=== PATIENT | male | born 1980 | race African-American/Black ===

== ENCOUNTER 2016-10-06 10:45 | Emergency (ER) | payer OTHER ==
[2016-10-06] MEDS ORDERED: Ondansetron INJ* 2 MG/ML VIAL IV ONE (11:25)
[2016-10-06] MEDS ORDERED: Ketorolac INJ* 30 MG/ML 1 ML VIAL IV ONE (11:25)
[2016-10-06] MEDS ORDERED: Acetaminophen TAB* 325 MG PO ONE (11:25)
[2016-10-06] MEDS: NS 0.9% 1000 ML* 3,000 ML IV ONE ×2 (11:56→12:05)
[2016-10-06 12:20] LABS: Hematocrit 41 % (42-52); Mean Corpuscular HGB Conc 34 g/dl (31-36); Mean Corpuscular Hemoglobin 28 pg (27-31); Mean Corpuscular Volume 83 fL (80-94); Mean Platelet Volume 10 um3 (7.4-10.4); Red Blood Count 4.98 10^6/ul (4.0-5.4); Red Cell Distribution Width 14 % (10.5-15); White Blood Count 4.2 10^3/ul (3.5-10.8)
[2016-10-06 12:38] LABS: Albumin 3.7 g/dL (3.2-5.2); BUN/Creatinine Ratio 9.8 (8-20); C Reactive Protein 10.11 mg/L (< 5.00); Calcium 8.6 mg/dL (8.6-10.3); EGFR African American 120.4 (>60); EGFR Non-African American 93.6 (>60); Globulin 2.9 g/dL (2-4); Total Bilirubin 0.9 mg/dL (0.2-1.0); Total Protein 6.6 g/dL (6.4-8.9)
[2016-10-06 12:42] LABS: Potassium 3.9 mmol/L (3.5-5.0)
[2016-10-06 12:45] LABS: Urine Bacteria Absent (Absent); Urine Bilirubin Negative (Negative); Urine Glucose Negative (Negative); Urine Nitrite Negative (Negative)
[2016-10-06 12:52] LABS: TSH (Thyroid Stimulating Horm) 0.36 mcIU/mL (0.34-5.60)
[2016-10-06] MEDS ORDERED: Oseltamivir CAP* 75 MG PO ONE ×2 (14:00→14:02)
[2016-10-06] MEDS ORDERED: Ondansetron ODT TAB* 4 MG SL PRN (14:02)
--- NOTE | 2016-10-06 14:05 | ED ---
Jimena Lozada Alok, scribed for Humberto Araiza MD on 10/06/16 at 1131 . Influenza-Like Illness - HPI Summary HPI Summary: 35 y/o male presents to the ED with influenza-like symptoms including vomiting for the last two days, TEJADA, myalgia, dizziness, nausea, subjective fever, chills , and sore throat. Pt denies any diarrhea, dysuria, rashes, cough, chest congestion, rhinorrhea, or abd pain. Pt states NKDA. No other medical findings at this time. - History of Current Complaint Chief Complaint: EDNauseaVomitDiarrh Time Seen by Provider: 10/06/16 11:14 Hx Obtained From: Patient Onset/Duration: Gradual Onset, Lasting Days, Still Present Severity: Moderate Associated Signs & Symptoms: Fever, Myalgia, Sore Throat, Headache, Vomiting - Allergy/Home Medications Allergies/Adverse Reactions: Allergies Allergy/AdvReac Type Severity Reaction Status Date / Time No Known Allergies Allergy Verified 10/06/16 12:13 PMH/Surg Hx/FS Hx/Imm Hx Infectious Disease History: No Infectious Disease History: Denies: Traveled Outside the [place] in Last 30 Days - Social History Occupation: Unemployed Alcohol Use: None Substance Use Type: Reports: None Smoking Status (MU): Light Every Day Tobacco Smoker Review of Systems Positive: Fever, Chills Positive: Sore Throat. Negative: Nasal Discharge Negative: Cough Positive: Vomiting, Nausea. Negative: Abdominal Pain, Diarrhea Negative: dysuria Positive: Myalgia Negative: Rash All Other Systems Reviewed And Are Negative: Yes Physical Exam Triage Information Reviewed: Yes Vital Signs On Initial Exam: Initial Vitals Temp Pulse Resp BP Pulse Ox 98.8 F 54 16 105/50 98 10/06/16 10:52 10/06/16 10:52 10/06/16 10:52 10/06/16 10:52 10/06/16 10:52 Vital Signs Reviewed: Yes Appearance: Positive: No Pain Distress, Ill-Appearing - Mild Skin: Positive: Warm, Skin Color Reflects Adequate Perfusion, Dry Head/Face: Positive: Normal Head/Face Inspection Eyes: Positive: Normal ENT: Positive: Other - Dry Oral Mucosis Neck: Positive: Supple, Nontender Respiratory/Lung Sounds: Positive: Clear to Auscultation, Breath Sounds Present Cardiovascular: Positive: RRR Abdomen Description: Positive: Nontender, Soft Bowel Sounds: Positive: Present Musculoskeletal: Positive: Normal, Strength/ROM Intact Neurological: Positive: Normal, Sensory/Motor Intact, Alert, Oriented to Person Place, Time Psychiatric: Positive: Normal, Affect/Mood Appropriate - Ean Coma Scale Coma Scale Total: 15 Diagnostics - Vital Signs Vital Signs Temp Pulse Resp BP Pulse Ox 10/06/16 10:52 98.8 F 54 16 105/50 98 - Laboratory Lab Results: Lab Results 10/06/16 10/06/16 10/06/16 Range/Units 11:53 11:53 11:53 WBC 4.2 (3.5-10.8) 10^3/ul RBC 4.98 (4.0-5.4) 10^6/ul Hgb 14.0 (14.0-18.0) g/dl Hct 41 L (42-52) % MCV 83 (80-94) fL MCH 28 (27-31) pg MCHC 34 (31-36) g/dl RDW 14 (10.5-15) % Plt Count 122 L (150-450) 10^3/ul MPV 10 (7.4-10.4) um3 Neut % (Auto) 62.7 (38-83) % Lymph % (Auto) 20.8 L (25-47) % Mcleod % (Auto) 15.8 H (1-9) % Eos % (Auto) 0.2 (0-6) % Baso % (Auto) 0.5 (0-2) % Absolute Neuts (auto) 2.6 (1.5-7.7) 10^3/ul Absolute Lymphs (auto) 0.9 L (1.0-4.8) 10^3/ul Absolute Monos (auto) 0.7 (0-0.8) 10^3/ul Absolute Eos (auto) 0 (0-0.6) 10^3/ul Absolute Basos (auto) 0 (0-0.2) 10^3/ul Absolute Nucleated RBC 0.01 10^3/ul Nucleated RBC % 0.2 INR (Anticoag Therapy) 1.14 H (0.89-1.11) APTT 29.9 (26.0-36.3) seconds Sodium 133 (133-145) mmol/L Potassium 3.9 (3.5-5.0) mmol/L Chloride 105 (101-111) mmol/L Carbon Dioxide 24 (22-32) mmol/L Anion Gap 4 (2-11) mmol/L BUN 9 (6-24) mg/dL Creatinine 0.92 (0.67-1.17) mg/dL Est GFR ( Amer) 120.4 (>60) Est GFR (Non-Af Amer) 93.6 (>60) BUN/Creatinine Ratio 9.8 (8-20) Glucose 98 (70-100) mg/dL Lactic Acid (0.5-2.0) mmol/L Calcium 8.6 (8.6-10.3) mg/dL Total Bilirubin 0.90 (0.2-1.0) mg/dL AST 34 (13-39) U/L ALT 36 (7-52) U/L Alkaline Phosphatase 31 L (34-104) U/L C-Reactive Protein 10.11 H (< 5.00) mg/L Total Protein 6.6 (6.4-8.9) g/dL Albumin 3.7 (3.2-5.2) g/dL Globulin 2.9 (2-4) g/dL Albumin/Globulin Ratio 1.3 (1-3) Lipase 157 H (11.0-82.0) U/L TSH 0.36 (0.34-5.60) mcIU/mL Urine Color Urine Appearance Urine pH (5-9) Ur Specific Ashby (1.010-1.030) Urine Protein (Negative) Urine Ketones (Negative) Urine Blood (Negative) Urine Nitrate (Negative) Urine Bilirubin (Negative) Urine Urobilinogen (Negative) Ur Leukocyte Esterase (Negative) Urine WBC (Auto) (Absent) Urine RBC (Auto) (Absent) Urine Bacteria (Absent) Urine Glucose (Negative) Influenza A (Rapid) (Negative) Influenza B (Rapid) (Negative) Group A Strep Rapid (Negative) 10/06/16 10/06/16 10/06/16 Range/Units 11:53 11:53 12:25 WBC (3.5-10.8) 10^3/ul RBC (4.0-5.4) 10^6/ul Hgb (14.0-18.0) g/dl Hct (42-52) % MCV (80-94) fL MCH (27-31) pg MCHC (31-36) g/dl RDW (10.5-15) % Plt Count (150-450) 10^3/ul MPV (7.4-10.4) um3 Neut % (Auto) (38-83) % Lymph % (Auto) (25-47) % Mcleod % (Auto) (1-9) % Eos % (Auto) (0-6) % Baso % (Auto) (0-2) % Absolute Neuts (auto) (1.5-7.7) 10^3/ul Absolute Lymphs (auto) (1.0-4.8) 10^3/ul Absolute Monos (auto) (0-0.8) 10^3/ul Absolute Eos (auto) (0-0.6) 10^3/ul Absolute Basos (auto) (0-0.2) 10^3/ul Absolute Nucleated RBC 10^3/ul Nucleated RBC % INR (Anticoag Therapy) (0.89-1.11) APTT (26.0-36.3) seconds Sodium (133-145) mmol/L Potassium (3.5-5.0) mmol/L Chloride (101-111) mmol/L Carbon Dioxide (22-32) mmol/L Anion Gap (2-11) mmol/L BUN (6-24) mg/dL Creatinine (0.67-1.17) mg/dL Est GFR ( Amer) (>60) Est GFR (Non-Af Amer) (>60) BUN/Creatinine Ratio (8-20) Glucose (70-100) mg/dL Lactic Acid 0.6 (0.5-2.0) mmol/L Calcium (8.6-10.3) mg/dL Total Bilirubin (0.2-1.0) mg/dL AST (13-39) U/L ALT (7-52) U/L Alkaline Phosphatase (34-104) U/L C-Reactive Protein (< 5.00) mg/L Total Protein (6.4-8.9) g/dL Albumin (3.2-5.2) g/dL Globulin (2-4) g/dL Albumin/Globulin Ratio (1-3) Lipase (11.0-82.0) U/L TSH (0.34-5.60) mcIU/mL Urine Color Straw Urine Appearance Clear Urine pH 6.0 (5-9) Ur Specific Ashby 1.004 L (1.010-1.030) Urine Protein Negative (Negative) Urine Ketones Negative (Negative) Urine Blood Negative (Negative) Urine Nitrate Negative (Negative) Urine Bilirubin Negative (Negative) Urine Urobilinogen Negative (Negative) Ur Leukocyte Esterase Negative (Negative) Urine WBC (Auto) Absent (Absent) Urine RBC (Auto) Absent (Absent) Urine Bacteria Absent (Absent) Urine Glucose Negative (Negative) Influenza A (Rapid) Positive H (Negative) Influenza B (Rapid) Negative (Negative) Group A Strep Rapid (Negative) 10/06/16 Range/Units 12:26 WBC (3.5-10.8) 10^3/ul RBC (4.0-5.4) 10^6/ul Hgb (14.0-18.0) g/dl Hct (42-52) % MCV (80-94) fL MCH (27-31) pg MCHC (31-36) g/dl RDW (10.5-15) % Plt Count (150-450) 10^3/ul MPV (7.4-10.4) um3 Neut % (Auto) (38-83) % Lymph % (Auto) (25-47) % Mcleod % (Auto) (1-9) % Eos % (Auto) (0-6) % Baso % (Auto) (0-2) % Absolute Neuts (auto) (1.5-7.7) 10^3/ul Absolute Lymphs (auto) (1.0-4.8) 10^3/ul Absolute Monos (auto) (0-0.8) 10^3/ul Absolute Eos (auto) (0-0.6) 10^3/ul Absolute Basos (auto) (0-0.2) 10^3/ul Absolute Nucleated RBC 10^3/ul Nucleated RBC % INR (Anticoag Therapy) (0.89-1.11) APTT (26.0-36.3) seconds Sodium (133-145) mmol/L Potassium (3.5-5.0) mmol/L Chloride (101-111) mmol/L Carbon Dioxide (22-32) mmol/L Anion Gap (2-11) mmol/L BUN (6-24) mg/dL Creatinine (0.67-1.17) mg/dL Est GFR ( Amer) (>60) Est GFR (Non-Af Amer) (>60) BUN/Creatinine Ratio (8-20) Glucose (70-100) mg/dL Lactic Acid (0.5-2.0) mmol/L Calcium (8.6-10.3) mg/dL Total Bilirubin (0.2-1.0) mg/dL AST (13-39) U/L ALT (7-52) U/L Alkaline Phosphatase (34-104) U/L C-Reactive Protein (< 5.00) mg/L Total Protein (6.4-8.9) g/dL Albumin (3.2-5.2) g/dL Globulin (2-4) g/dL Albumin/Globulin Ratio (1-3) Lipase (11.0-82.0) U/L TSH (0.34-5.60) mcIU/mL Urine Color Urine Appearance Urine pH (5-9) Ur Specific Ashby (1.010-1.030) Urine Protein (Negative) Urine Ketones (Negative) Urine Blood (Negative) Urine Nitrate (Negative) Urine Bilirubin (Negative) Urine Urobilinogen (Negative) Ur Leukocyte Esterase (Negative) Urine WBC (Auto) (Absent) Urine RBC (Auto) (Absent) Urine Bacteria (Absent) Urine Glucose (Negative) Influenza A (Rapid) (Negative) Influenza B (Rapid) (Negative) Group A Strep Rapid Negative (Negative) Result Diagrams: 10/06/16 11:53 10/06/16 11:53 Lab Statement: Any lab studies that have been ordered have been reviewed, and results considered in the medical decision making process. Re-Evaluation - Re-Evaluation First Eval Re-Evaluation Time: 13:32 Flu Symptom Course/Dx - Course Assessment/Plan: IMPROVED IN ED. DISCUSSED RESULTS WITH PATIENT. START TAMIFLU 75MG PO BID X 5 DAYS AND ZOFRAN PRN. DISCHARGE HOME STABLE. - Diagnoses Provider Diagnoses: Influenza, Dehydration Discharge - Discharge Plan Condition: Stable Disposition: HOME Patient Education Materials: Influenza (ED), Dehydration (ED) Referrals: [facility], [Primary Care Provider] - Additional Instructions: FOLLOW UP WITH YOUR DOCTOR. TAKE TAMIFLU 75MG TWICE A DAY FOR 5 DAYS. TAKE ZOFRAN 4MG EVERY 4 HOURS NEEDED FOR NAUSEA. TAKE IBUPROFEN 600MG EVERY 6 HOURS NEEDED FOR FEVER OR BODY ACHES. YOU CAN ALSO TAKE ACETAMINOPHEN DIRECTED NEEDED FOR FEVER. RETURN TO THE EMERGENCY DEPARTMENT FOR ANY WORSENING OF YOUR CONDITION OR QUESTIONS OR CONCERNS. The documentation as recorded by the Jimena clinton Alok accurately reflects the service I personally performed and the decisions made by me, Humberto Araiza MD.
[2016-10-06] MEDS ORDERED: Ondansetron ODT TAB* 4 MG ONE (14:14)
[2016-10-06 14:42] VITALS: BP 110/64
== END 2016-10-06 14:43 | disposition home or self-care (01) ==
LOC: ED 10:45
DX: J11.1 Influenza due to unidentified influenza virus with other respiratory manifestations (principal); J02.9 Acute pharyngitis, unspecified; R50.9 Fever, unspecified; E86.0 Dehydration; R11.2 Nausea with vomiting, unspecified; R51 Headache; F17.210 Nicotine dependence, cigarettes, uncomplicated
CPT/HCPCS: 36415; 80053; 81003; 83605; 83690; 84443; 85025; 85610; 85730; 86140; 87502; 87651; 96374; 96375; 99283; A9270-GY; J1885; J2405

== ENCOUNTER 2016-10-27 21:41 | Emergency (ER) | payer OTHER ==
[2016-10-28] MEDS ORDERED: Ketorolac INJ* 60 MG/2 ML VIAL IM ONE (00:37)
--- NOTE | 2016-10-28 01:11 | ED ---
Ely Lozada Salem, scribed for Monty Lucia MD on 10/28/16 at 0046 . GI/ HPI - HPI Summary HPI Summary: Patient is a 35 y/o male who presents with a hernia in the left groin for a month and a half. He describes the pain as squeezing and aggravated by sitting and recumbent position. Pt denies vomiting. He has no other complaints. - History of Current Complaint Chief Complaint: EDUrogenitalProblems Time Seen by Provider: 10/28/16 00:09 Stated Complaint: SENT [facility] Hx Obtained From: Patient Onset/Duration: Started Weeks Ago, Still Present Timing: Constant Severity: Moderate Current Severity: Moderate Pain Intensity: 6 Location of Pain: Groin - Left. Pain Characteristics: Other: - Squeezing. Associated Signs and Symptoms: Positive: Negative. Negative: Vomiting Aggravating Factor(s): Sitting - and recumbent position. Alleviating Factor(s): Nothing - Allergy/Home Medications Allergies/Adverse Reactions: Allergies Allergy/AdvReac Type Severity Reaction Status Date / Time No Known Allergies Allergy Verified 10/27/16 21:46 PMH/Surg Hx/FS Hx/Imm Hx Previously Healthy: Yes Infectious Disease History: No Infectious Disease History: Denies: Traveled Outside the [place] in Last 30 Days - Family History Known Family History: Negative: Diabetes - Social History Alcohol Use: None Hx Substance Use: No Substance Use Type: Reports: None Hx Tobacco Use: Yes Smoking Status (MU): Light Every Day Tobacco Smoker Review of Systems Negative: Fever Positive: Vomiting Positive: other - left groin hernia and pain. All Other Systems Reviewed And Are Negative: Yes Physical Exam Triage Information Reviewed: Yes Vital Signs On Initial Exam: Initial Vitals Temp Pulse Resp BP Pulse Ox 97.3 F 70 18 130/51 100 10/27/16 21:45 10/27/16 21:45 10/27/16 21:45 10/27/16 21:45 10/27/16 21:45 Vital Signs Reviewed: Yes Appearance: Positive: Well-Appearing, No Pain Distress Skin: Positive: Warm Head/Face: Positive: Normal Head/Face Inspection Eyes: Positive: MISSY ENT: Positive: Hearing grossly normal Neck: Positive: Supple Respiratory/Lung Sounds: Positive: Clear to Auscultation, Breath Sounds Present Cardiovascular: Positive: RRR Abdomen Description: Positive: Nontender, No Organomegaly, Soft Bowel Sounds: Positive: Present Male Genital Exam: Positive: testicular tenderness (L) - mild Musculoskeletal: Positive: Strength/ROM Intact Neurological: Positive: Sensory/Motor Intact, Alert, Oriented to Person Place, Time Psychiatric: Positive: Affect/Mood Appropriate - [place] Coma Scale Coma Scale Total: 15 Diagnostics - Vital Signs Vital Signs Temp Pulse Resp BP Pulse Ox 10/27/16 21:45 97.3 F 70 18 130/51 100 - Laboratory Result Diagrams: 10/28/16 01:30 10/28/16 01:30 Lab Statement: Any lab studies that have been ordered have been reviewed, and results considered in the medical decision making process. - Ultrasound No standard instances Ultrasound Interpretation Completed By: Radiologist - US TESTICULAR IMPRESSION: Normal exam. Re-Evaluation - Re-Evaluation First Eval Change: Improved GIGU Course/Dx - Course Course Of Treatment: 35 y/o presents with a hernia in the left groin for a month and a half. He denies vomiting. He was given Toradol in the ED. US reveals normal exam. Pt will be DC'd. - Diagnoses Provider Diagnoses: Groin pain, Testicular pain Discharge - Discharge Plan Condition: Stable Disposition: HOME Discharge Disposition Comment: [facility] facility. Patient Education Materials: Groin Pain (ED), Testicle Pain (ED) Referrals: [facility], [Primary Care Provider] - Additional Instructions: Follow up with PCP. The documentation as recorded by the Ely clinton Salem accurately reflects the service I personally performed and the decisions made by me, Monty Lucia MD.
[2016-10-28 01:44] LABS: Hematocrit 44 % (42-52); Hemoglobin 14.8 g/dl (14.0-18.0); Mean Corpuscular HGB Conc 34 g/dl (31-36); Mean Corpuscular Hemoglobin 28 pg (27-31); Mean Corpuscular Volume 84 fL (80-94); Mean Platelet Volume 9 um3 (7.4-10.4); Red Blood Count 5.28 10^6/ul (4.0-5.4); Red Cell Distribution Width 14 % (10.5-15); White Blood Count 9.5 10^3/ul (3.5-10.8)
[2016-10-28 02:02] LABS: Albumin 4.2 g/dL (3.2-5.2); BUN/Creatinine Ratio 15.3 (8-20); Calcium 9.7 mg/dL (8.6-10.3); EGFR African American 131.9 (>60); EGFR Non-African American 102.6 (>60); Globulin 3.2 g/dL (2-4); Potassium 3.8 mmol/L (3.5-5.0); Total Bilirubin 0.9 mg/dL (0.2-1.0); Total Protein 7.4 g/dL (6.4-8.9)
[2016-10-28 03:29] VITALS: BP 115/95
--- NOTE | 2016-10-28 08:08 | RAD ---
INDICATION: 1 1/2 months of left testicular pain COMPARISON: None TECHNIQUE: Duplex interrogation of the scrotum was performed. FINDINGS: The testicles are normal in size and echogenicity. There is no evidence for testicular mass. The right testis measures 4.9 x 2.3 x 3.0 cm and the left 4.2 x 2.2 x 3.2 cm. There is symmetric flow on Doppler interrogation. Arterial and venous waveforms are identified bilaterally. The epididymides appear normal. The right epididymal head measures 0.8 x 1.3 cm and the left measures 1.2 x 1.2 cm. There is a small left-sided hydrocele. There are no varicoceles. IMPRESSION: There is a small left-sided hydrocele in this otherwise normal testicular ultrasound.
== END 2016-10-28 03:27 | disposition home or self-care (01) ==
LOC: ED 21:41
DX: K46.9 Unspecified abdominal hernia without obstruction or gangrene (principal); N50.819 Testicular pain, unspecified; R11.10 Vomiting, unspecified; F17.210 Nicotine dependence, cigarettes, uncomplicated
CPT/HCPCS: 36415; 76870; 80053; 85025; 96372; 99282; J1885